=== PATIENT | female | born 2000 | race Caucasian/White ===

== ENCOUNTER → 2023-08-21 12:42 | Outpatient (CLI) | payer OTHER, SELFPAY ==
[2023-08-22 14:02] LABS: Strep Grp B PCR POS for Grp B Strep
== END ==
PROVIDERS: Visit Provider Obstetrics & Gynecology
DX: Z34.03 Encounter for supervision of normal first pregnancy, third trimester (principal); Z3A.37 37 weeks gestation of pregnancy
CPT/HCPCS: 87186; 87653

== ENCOUNTER 2023-09-05 14:59 | Outpatient (CLI) | payer OTHER, SELFPAY | END 2023-09-05 15:45 | disposition home or self-care (01) | LOC: OB 09-11 06:39 | PROVIDERS: Referring Provider Obstetrics & Gynecology; Visit Provider Obstetrics & Gynecology | DX: O47.1 False labor at or after 37 completed weeks of gestation (principal); Z3A.39 39 weeks gestation of pregnancy | CPT/HCPCS: 59025; G0378; G0379 ==

== ENCOUNTER 2023-09-05 22:28 | Observation (INO) | payer OTHER, SELFPAY | END 2023-09-05 23:35 | disposition home or self-care (01) | LOC: LABOR 22:31 | PROVIDERS: Admitting Provider Obstetrics & Gynecology; Referring Provider Obstetrics & Gynecology; Visit Provider Obstetrics & Gynecology | DX: O47.1 False labor at or after 37 completed weeks of gestation (principal); Z3A.39 39 weeks gestation of pregnancy | CPT/HCPCS: G0378; G0379 ==

== ENCOUNTER 2023-09-06 02:58 | Inpatient (IN) | payer OTHER, SELFPAY ==
[2023-09-06] MEDS: CLINDAMYCIN 900 MG/50 ML PIGGYBACK 50 MG IV (03:55)
[2023-09-06 03:57] LABS: Add Manual Diff / Slide Review NO; Basophils Absolute Auto 100 /uL (0-100); Basophils Percent Auto 0.6 % (0-2); Eosinophils Absolute Auto 0 /uL (0-450); Eosinophils Percent Auto 0.2 % (2-4); Hematocrit 39.6 % (36-46); Hemoglobin 13.6 g/dL (12.0-16.0); Lymphocytes Absolute Auto 2300 /uL (1100-4500); Lymphocytes Percent Auto 18.6 % (25-40); Mean Corpuscular HGB Conc 34.4 % (30-36); Mean Corpuscular Hemoglobin 30.5 PG (26-34); Mean Corpuscular Volume 88.7 fL (80-100); Monocytes Absolute Auto 900 /uL (0-900); Neutrophils Absolute Auto 9100 /uL (1500-7000); Neutrophils Percent Auto 73.6 % (50-75); Platelet Count 225 X10^3/uL (150-400); Red Blood Cell Count 4.47 X10^6/uL (4.0-5.2); Red Cell Distribution Width 15.3 % (11.6-14.8); White Blood Cell Count 12.4 X10^3/uL (4.5-11.0)
[2023-09-06] MEDS: LACTATED RINGERS 1,000 ML 100 ML IV ×2 (04:13→10:30)
--- NOTE | 2023-09-06 06:27 | PM.ANES.PR ---
Operative Date/Time/Diagnoses Date of procedure: 09/06/23 Time of procedure: 05:20 Pre-op diagnosis: Labor pain Post-op diagnosis: same Note Patient is a requesting labor epidural for labor pain
--- NOTE | 2023-09-06 06:28 | PM.AN.REGBLK ---
Regional Block Pre-procedure Procedure: Continuous Lumbar Epidural for L&D Attending OB provider: Melida Rutherford PMH/ROS narrative: Patient is a requesting labor epidural for labor pain Hx: No personal or family history of anesthesia problems. Exam narrative: Mallampati: 2, good neck ROM ASA Class: II Labs: Hct 39.6 % (36-46) 09/06/23 03:50 Plt Count 225 X10^3/uL (150-400) 09/06/23 03:50 Medications: Current Medications Generic Name Dose Route Start Last Admin Trade Name Freq PRN Reason Stop Dose Admin Carboprost Tromethamine 250 mcg 09/06/23 03:21 Carboprost 250 Mcg/Ml Ampul IM Q90M PRN Bleeding Oxytocin/Lactated Ringer's 30 unit in 500 mls @ 200 mls/hr 09/06/23 03:21 Oxytocin Premix IV CONT PRN Bleeding Protocol Tranexamic Acid 1,000 mg/ 100 mls @ 200 mls/hr 09/06/23 03:21 Sodium Chloride IV NOW PRN Bleeding Lactated Ringer's 1,000 mls @ 100 mls/hr 09/06/23 03:30 09/06/23 04:13 Lactated Ringers IV 100 mls/hr CONT FARRAH Administration Clindamycin Phosphate 900 mg in 50 mls @ 50 mls/hr 09/06/23 03:45 09/06/23 03:55 Cleocin IV 50 mls/hr Q8H FARRAH Administration Lidocaine HCl 20 ml 09/06/23 03:21 Lidocaine 1% 20 Ml INJ INTRA-OP PRN Post Delivery Methylergonovine Maleate 0.2 mg 09/06/23 03:21 Methylergonovine 0.2 Mg Tablet PO Q6HR PRN Heavy Bleeding Methylergonovine Maleate 0.2 mg 09/06/23 03:21 Methylergonovine 0.2 Mg/Ml Vial IM NOW PRN Bleeding Misoprostol 800 mcg 09/06/23 03:21 Misoprostol 200 Mcg Tablet MI NOW PRN Bleeding Misoprostol 400 mcg 09/06/23 03:21 Misoprostol 200 Mcg Tablet SL NOW PRN Bleeding Naloxone HCl 0.2 mg 09/06/23 03:21 Naloxone 0.4 Mg/Ml Vial IV Q2MIN PRN Opiate Reversal Oxytocin 10 unit 09/06/23 03:21 Oxytocin 10 Unit/Ml Vial IM NOW PRN Bleeding Allergies: Allergies Allergy/AdvReac Type Severity Reaction Status Date / Time Penicillins Allergy Mild Hives Verified 09/05/23 14:26 Procedure Insertion date: 09/06/23 Insertion time: 05:25 Prep/Local: 1% lidocaine (sterile drape, gloves, prep with Chloroprep) Interspace: L4-5 Patient position: sitting Needle: 18 gauge Hustead Loss of resistance with: saline JOANNA at (cm): 5 Catheter placed at SKIN (cm): 10 Catheter in SPACE (cm): 5 Sensory level: T10 Insertion: No CSF, No Blood, No Paresthesia with insertion, No Paresthesia with injection and No Test dose reaction Initial Medications TEST DOSE time: 06:04 TEST DOSE: 1.5% lidocaine with epinephrine 1:200k (mL): 5 BOLUS DOSE time: 06:15 BOLUS DOSE (mL): 5 BOLUS DOSE med: other (2%lidocaine) Infusion INFUSION: 0.125% bupivacaine and with fentanyl 2 mcg/mL Initial rate (mL/hr): 10 Subsequent interventions: Epidural Bolus of 100mcg fentanyl + 5 cc 0.25% Bupivacaine given prior to starting pump Post-procedure Anesthesia time START: 05:25 Anesthesia time END: 11:43 Post-procedure Anesthesia Assessment: Yes CV function: HR/BP stable, Yes Resp function: RR/sat/airway adequate, Yes Post-op hydration adequate, Yes Pain control adequate, Yes Nausea & vomiting absent, Yes Temperature > 36 C and Yes Mental status appropriate
[2023-09-06 06:58] VITALS: BP 105/55
--- NOTE | 2023-09-06 08:42 | P.HPOB_ITS ---
OB HPI Date/Time Date of admission: 09/06/23 Date Patient Seen: 09/06/23 History of Present Condition Chief complaint: OB CIELO Calculator 2 Estimated Delivery Date Method Current WG Current Estimate 09/10/23 Manual 39w 3d dates deter mined by MFJessa Other Estimates 09/05/23 Ultrasound #1 40w 1d 08/31/23 Conception 40w 6d Estimated Gestational Age (weeks): 39w3d : 1 Para: 0 Narrative: Pt is a 22yo at 39w3d here with regular painful contractions. Pt reports contractions started in the middle of the night, increasing in frequency and intensity. She denies any vaginal bleeding, LOF. She is feeling her baby move regularly. Her was uncomplicated. She transferred care from [place] at 35 wks. Her has tested positive for the ARVD. care: good care, initiated at week # (8) and pounds weight gain (43) Ultrasounds: normal 1st trimester US and normal mid trimester US Obstetrical complications: none Medical complications OB: none Preadmission Labs Last OB Lab Results: 2 Blood Type O Positive 09/06/23 04:07 Antibody Screen Negative 09/06/23 04:07 Hematocrit 39.6 % (36-46) 09/06/23 03:50 Hemoglobin 13.6 g/dL (12.0-16.0) 09/06/23 03:50 Group B Streptococcus (PCR) Pos for grp b strep H 08/21/23 12:4 2 Glucose Tolerance Testin hr (124) Genetic Screens: Cell-free DNA: Normal External Labs -: RPR/VDLR: negative Evaluation Evaluation Baseline heart rate: 130 Variability: Moderate (11-25) monitor accelerations: Present Monitor Decelerations: Absent Contraction Frequency (minutes): 2 Uterine Contraction Intensity: Strong/Firm Status: Category l Dilation (cm): 10 Effacement (%): 100 station: +2 Comments: After informed consent, AROM performed with meconium-stained fluid present [facility] Medical History (Updated 08/20/23 @ 18:14 by Estrella Traore) Chicken pox Irregular menstrual cycle Liver disease (~2014) Migraine with aura Depression (~2015) Anxiety (~2015) Surgical History (Updated 08/20/23 @ 18:14 by Estrella Traore) Anesthesia [place] teeth extracted History of appendectomy (~06/15/23) Family History (Updated 08/20/23 @ 18:15 by Estrella Traore) Father Viral hepatitis Mother Depression Anxiety Grandmother Diabetes mellitus Grandfather Lung cancer COPD (chronic obstructive pulmonary disease) Smoker Uncle Anxiety Depression Social History marital status: number of children: 0 household members: spouse lives independently: Yes caregiver/support person: No housing: other (TBD, [place] housing [place]) pets and animals: Yes (dogs, birds, ferrets. manages birds and ferretts) education level: vocational occupational status: previously employed current occupational exposures/hazards: No special dee needs: No travel history: recent (moved from [place]) seatbelt use: always firearms in home: No do you feel safe at home: Yes Smoking Status: Never smoker second hand exposure: No alcohol intake: former (rarely when not ) substance use type: does not use during the past year weight has: remained stable well-balanced diet: about half the time daily servings fruits/ve-4 caffeine: Yes (1 cup coffee in AM) Type(s) of exercise: walking, regular exercise and yoga Meds Home Medications and Allergies Home Medications Medication Instructions Recorded Confirmed Type ferrous sulfate 325 mg (65 mg 325 mg PO DAILY 07/26/23 09/05/23 History iron) tablet (Feosol) magnesium 250 mg tablet 250 mg PO DAILY 07/26/23 09/05/23 History omega-3 fatty acids 500 mg capsule 500 mg PO DAILY 07/26/23 09/05/23 History vitamin-ferrous sulfate tab PO 07/26/23 09/05/23 History 27 mg iron-folic acid 0.8 mg tablet Allergies Allergy/AdvReac Type Severity Reaction Status Date / Time Penicillins Allergy Mild Hives Verified 09/05/23 14:26 OB Exam Resp Effort & Inspection: normal respiratory effort Auscultation: clear to auscultation bilaterally Cardio Rate: regular rate Rhythm: regular rhythm Heart Sounds: S1 normal, S2 normal and no murmurs GI Inspection: non-distended Palpation: Yes soft and No tender Presentation: vertex Objective Labs 09/06/23 03:50 Labs: Laboratory Results - last 24 hr 09/06/23 09/06/23 03:50 04:07 WBC 12.4 H RBC 4.47 Hgb 13.6 Hct 39.6 MCV 88.7 MCH 30.5 MCHC 34.4 RDW 15.3 H Plt Count 225 Neut % (Auto) 73.6 Lymph % (Auto) 18.6 L [place] % (Auto) 7.0 Eos % (Auto) 0.2 L Baso % (Auto) 0.6 Neut # (Auto) 9100 H Lymph # (Auto) 2300 [place] # (Auto) 900 Eos # (Auto) 0 Baso # (Auto) 100 Blood Type O Positive Antibody Screen Negative Assessment and Plan Assessment and Plan Assessment and Plan narrative: 22yo at 39w3d here in active labor. GBS positive, Rh positive. AROM performed after adequate GBS prophylaxis when pt complete. - Expectant management, anticipate - FHT reassuring - GBS positive, continue prophylaxis with Clindamycin due to penicillin allergy - Epidural in place for pain control - Remainder of labs to be ordered
[2023-09-06] MEDS: OXYTOCIN PREMIX 30 UNIT/500 ML PLAST..BAG 200 UNIT IV (11:58)
[2023-09-06] MEDS: LIDOCAINE 1% 20 ML INJ (12:00)
--- NOTE | 2023-09-06 13:13 | P.PCNOB_ITS ---
Labor & Delivery Delivery date: 09/06/23 Intrapartal Events: None Cervical ripening method: none Induction method: none Delivery augmentation: rupture of membranes Delivery monitor: external FHT and external uterine Route of delivery: Episiotomy description: None L&D Laceration Description: Labial Delivery repair: chromic Quantitative Blood Loss: 300 Anesthesia Type: Epidural Narrative: PROCEDURE: at 39w3d presented in active labor and was admitted to Labor and Delivery. The patient progressed through the 1st stage without augmentation. She received GBS prophylaxis with Clindamycin. AROM occured at 8:23 with meconium-stained fluid. Pain was controlled with an epidural. The patient progressed through the 2nd stage over 2.5 hours and delivered a viable female with APGARs 7/9 at 11:53 via without complications. The cord was cut and clamped after it stopped pulsating. The placenta delivered with gentle cord traction, and appeared complete. The perineum and vagina were inspected with left labial laceration repaired with 2-O Chromic. Needle and sponge counts were correct.? The vagina was inspected and no items were left in situ. Hyun was doing well with Ember, her and her , Nathan,at [facility]. PREPROCEDURE DIAGNOSIS: Intrauterine at 39w3d GBS positive RH positive POSTPROCEDURE DIAGNOSIS: Intrauterine at 39w3d, delivered Same as preprocedure Baby 1: Infant gender: Female Presentation: vertex Position: Left Occiput Anterior Placenta delivery description: Spontaneous Cord Vessel Description: 3 Vessels score (1 min): 7 score (5 min): 9 weight: 7 lb 7.614 oz Plan for aftercare: Routine care
[2023-09-06] MEDS: ACETAMINOPHEN 325 MG TABLET 650 MG PO ×2 (15:11→20:49)
[2023-09-06] MEDS: IBUPROFEN 600 MG TABLET PO ×2 (15:12→20:52)
[2023-09-06 17:15] LABS: Rubella Antibody IgG 31.4 IU/mL (>15)
[2023-09-06 17:45] LABS: HIV 1 & 2 Ab/Ag 4th Gen Combo NEGATIVE (NEGATIVE)
[2023-09-06] MEDS: LANOLIN OINT 7 GM 1 APPLIC TOP (20:48)
[2023-09-07] MEDS: IBUPROFEN 600 MG TABLET PO ×3 (02:49→14:28)
[2023-09-07] MEDS: ACETAMINOPHEN 325 MG TABLET 650 MG PO ×3 (02:49→14:27)
[2023-09-07] MEDS: DOCUSATE 100 MG CAPSULE PO (08:21)
[2023-09-07] MEDS: PRENATAL VIT,CALC/IRON/FOLIC 1 TABLET 1 TAB PO (08:21)
[2023-09-07 09:08] LABS: Varicella IgG Antibody 653 index (Immune >165)
[2023-09-08 07:21] LABS: HBsAg Screen Negative (Negative); Hep A AB IgM Negative (Negative); Hepatitis A Ab, Total Negative (Negative); Hepatitis B Core Antibody IgM Negative (Negative); Hepatitis B Core Total Negative (Negative); Hepatitis B Surface AB, Qual Non Reactive (.); Hepatitis C Virus Ab Non Reactive (Non Reactive)
== END 2023-09-07 17:00 | disposition home or self-care (01) | DRG 807 ==
PROVIDERS: Family Medicine; Admitting Provider Obstetrics & Gynecology; Referring Provider Obstetrics & Gynecology; Visit Provider Obstetrics & Gynecology
DX: O99.824 Streptococcus B carrier state complicating childbirth (principal); Z37.0 Single live birth; Z3A.39 39 weeks gestation of pregnancy; O70.0 First degree perineal laceration during delivery
CPT/HCPCS: 36415; 59025; 59050; 59410; 80074; 85025; 86704; 86706; 86708; 86762; 86787; 86850; 86900; 86901; 87389; G0379; J2590

== ENCOUNTER → 2024-04-26 15:14 | Outpatient (CLI) | payer OTHER, SELFPAY ==
[2024-04-26 19:10] LABS: TSH w/ Reflex to FT4 1.67 uIU/mL (0.47-4.68)
[2024-04-26 21:12] LABS: Prolactin 41.9 ng/mL (3.0-18.6)
== END ==
PROVIDERS: Referring Provider Specialist; Visit Provider Specialist
DX: N92.6 Irregular menstruation, unspecified (principal)
CPT/HCPCS: 84146; 84443

== ENCOUNTER 2025-07-24 16:18 | Emergency (ER) | payer OTHER, SELFPAY ==
[2025-07-24 16:22] VITALS: BP 127/81; PULSE 84; RESP 16; TEMP 36.6; O2SAT 100; BMI 20.3
--- NOTE | 2025-07-24 16:25 | DI.RAD.S_ITS ---
PROCEDURE: XR FINGER RT MIN 2V INDICATIONS: slammed thumb in car door TECHNIQUE: AP hand, 2 views of the 1st finger(s) acquired. COMPARISON: None. FINDINGS: Bones: No fractures or dislocations. No suspicious bony lesions. Normal appearing sesamoid bones are seen. Soft tissues: No suspicious soft tissue calcifications. IMPRESSION: No displaced fractures are seen on these plain films. Dictated by: Yogi Guevara M.D. on 07/24/2025 at 15:51 Approved by: Yogi Guevara M.D. on 07/24/2025 at 15:51
--- NOTE | 2025-07-24 17:14 | ED.UPPEXIN ---
HPI - Extremity Injury (Upper) <Radha Perez PA-C - Last Filed: 07/24/25 19:31> General Chief Complaint: Extremity Injury, Upper Stated Complaint: Slammed Thumb in car door today Time Seen by Provider: 07/24/25 16:46 History of Present Illness HPI narrative: Hyun Block is a very pleasant 24-year-old female who presents to the emergency department for injury to right thumb that occurred earlier today. Patient accidentally slammed her right thumb in a car door, she has a small subungual hematoma/bruising at the base of the nail, and pain between the nail and the DIP joint. Finger is not deformed. No open wounds. No other injuries. Related Data Home Medications ?Medication ?Instructions ?Recorded ?Confirmed sertraline 25 mg tablet (Zoloft) 50 mg PO DAILY Anxiety and 04/26/24 06/08/25 depression Allergies Allergy/AdvReac Type Severity Reaction Status Date / Time Penicillins Allergy Mild Hives Verified 04/26/24 14:51 amoxicillin Allergy Verified 06/08/25 13:15 Review of Systems <Radha Perez PA-C - Last Filed: 07/24/25 19:31> Review of Systems ROS Unobtainable: All systems reviewed & are unremarkable except as noted in HPI and below Patient History <Radha Perez PA-C - Last Filed: 07/24/25 19:31> Medical History Vaginal delivery (~08/2023) Chicken pox Irregular menstrual cycle Liver disease (~2014) Migraine with aura Depression (~2015) Anxiety (~2015) Surgical History Anesthesia [place] teeth extracted History of appendectomy (~06/15/23) Family History Father Viral hepatitis Mother Depression Anxiety Grandmother Diabetes mellitus Grandfather Lung cancer COPD (chronic obstructive pulmonary disease) Smoker Uncle Anxiety Depression Social History marital status: number of children: 0 household members: spouse lives independently: Yes caregiver/support person: No housing: other (TBD, waiting on base housing issues) pets and animals: Yes (dogs, birds, ferrets. manages birds and ferretts) education level: vocational occupational status: previously employed current occupational exposures/hazards: No special dee needs: No travel history: recent (moved from [place]) seatbelt use: always firearms in home: No do you feel safe at home: Yes second hand exposure: No alcohol intake: former (rarely when not ) substance use type: does not use during the past year weight has: remained stable well-balanced diet: about half the time daily servings fruits/ve-4 caffeine: Yes (1 cup coffee in AM) Type(s) of exercise: walking, regular exercise and yoga Exam <Radha Perez PA-C - Last Filed: 07/24/25 19:31> Narrative Exam Narrative: GENERAL: 24 year old patient appears stated age. Well-developed patient, in no acute distress. HEAD: Atraumatic. Normocephalic. NECK: Trachea midline. Cervical ROM intact. CARDIOVASCULAR: Regular rate RESPIRATORY: ?Nonlabored respirations. ?Speaking in clear, full sentences. EXTREMITIES: Right thumb with small subungual hematoma at proximal nail base, less than 25% of nail. Tenderness to palpation of the distal phalanx. No deformities. Patient is still able to flex and extend at the DIP and MCP. Brisk cap refill on the distal thumb tip and sensation intact to light touch. NEURO: AOx3. ?Clear speech. ?Moves all 4 extremities appropriately. SKIN: No rash or erythema of visible areas Initial Vital Signs Initial Vital Signs: Vital Signs Temperature 97.9 F 07/24/25 16:22 Pulse Rate 84 07/24/25 16:22 Respiratory Rate 16 07/24/25 16:22 Blood Pressure 127/81 07/24/25 16:22 Pulse Oximetry 100 07/24/25 16:22 Oxygen Delivery Method Room Air 07/24/25 16:22 <Gualberto Xiong DO - Last Filed: 07/25/25 22:59> Initial Vital Signs Initial Vital Signs: Vital Signs Temperature 97.9 F 07/24/25 16:22 Pulse Rate 84 07/24/25 16:22 Respiratory Rate 16 07/24/25 16:22 Blood Pressure 127/81 07/24/25 16:22 Pulse Oximetry 100 07/24/25 16:22 Oxygen Delivery Method Room Air 07/24/25 16:22 Course <Radha Perez PA-C - Last Filed: 07/24/25 19:31> Orders Ordered: ED Orders 07/24/25 16:25 XR finger RT min 2V Stat Vital Signs Vital signs: Vital Signs - 8 hr 07/24/25 16:22 07/24/25 18:05 Temperature 97.9 F 98.3 F Pulse Rate 84 67 Respiratory Rate 16 16 Blood Pressure 127/81 132/76 Pulse Oximetry 100 99 Oxygen Delivery Method Room Air Room Air <Gualberto ArreguinFredrickIlsa Xiong DO - Last Filed: 07/25/25 22:59> Orders Ordered: ED Orders 07/24/25 16:25 XR finger RT min 2V Stat Vital Signs Vital signs: Vital Signs - 8 hr 07/24/25 16:22 07/24/25 18:05 Temperature 97.9 F 98.3 F Pulse Rate 84 67 Respiratory Rate 16 16 Blood Pressure 127/81 132/76 Pulse Oximetry 100 99 Oxygen Delivery Method Room Air Room Air MDM - Extremity Injury (Upper) <GAYLA Lazaro Last Filed: 07/24/25 19:31> Medical Records Attestation: I reviewed the patient's medical records. Imaging Data Right Finger X-Ray: My Impression: On my independent interpretation x-ray there is no fracture of the right distal phalanx Radiologist's Impression: PROCEDURE: XR FINGER RT MIN 2V INDICATIONS: slammed thumb in car door TECHNIQUE: AP hand, 2 views of the 1st finger(s) acquired. COMPARISON: None. FINDINGS: Bones: No fractures or dislocations. No suspicious bony lesions. Normal appearing sesamoid bones are seen. Soft tissues: No suspicious soft tissue calcifications. IMPRESSION: No displaced fractures are seen on these plain films. Dictated by: Yogi Guevara M.D. on 07/24/2025 at 15:51 Approved by: Yogi Guevara M.D. on 07/24/2025 at 15:51 [facility] Narrative Medical decision making narrative: 24-year-old female who presents to the emergency department for injury to right thumb that occurred earlier today. Differential diagnosis includes but is not limited to subungual hematoma, finger contusion, fracture, dislocation, sprain, strain, etc. On exam the patient is in no acute distress, nontoxic appearing, vital signs appropriate. Her right thumb has a very small subungual hematoma, tenderness of the distal phalanx, no deformities. She is neurovascularly intact. X-ray reveals no displaced fracture or dislocation. Did offer subungual hematoma drainage however it is quite small and she defers. Right thumb was placed in an aluminum splint for comfort. Discussed rice therapy, ibuprofen, acetaminophen, PCP follow up, ER return precautions. Patient verbalized understanding of all information agreeable with the plan. She is ambulatory for discharge home. <Gualberto Xiong, - Last Filed: 07/25/25 22:59> [facility] Narrative Medical decision making narrative: 24-year-old female who presents to the emergency department for injury to right thumb that occurred earlier today. Differential diagnosis includes but is not limited to subungual hematoma, finger contusion, fracture, dislocation, sprain, strain, etc. On exam the patient is in no acute distress, nontoxic appearing, vital signs appropriate. Her right thumb has a very small subungual hematoma, tenderness of the distal phalanx, no deformities. She is neurovascularly intact. X-ray reveals no displaced fracture or dislocation. Did offer subungual hematoma drainage however it is quite small and she defers. Right thumb was placed in an aluminum splint for comfort. Discussed rice therapy, ibuprofen, acetaminophen, PCP follow up, ER return precautions. Patient verbalized understanding of all information agreeable with the plan. She is ambulatory for discharge home. Co-sign statement: I was available for consultation during this patient's emergency department visit. This chart is being signed by myself for administrative purposes only. I do not have direct contact with this patient during this visit. They were seen independently by the APC. Discharge Plan Departure Patient Disposition: Home Clinical Impression: Subungual hematoma Crush injury to thumb Qualifiers: Encounter type: initial encounter Laterality: right Qualified Code(s): S67.01XA - Crushing injury of right thumb, initial encounter Instructions: DI for Crush Injury, DI for Subungual Hematoma Activity Restrictions/Additional Instructions: Dear Ms. Block, Thank you for coming to the emergency department. Today you were evaluated for crush injury to the thumb. You have a small amount of bleeding below the nail which is called a subungual hematoma. Your x-ray luckily did not reveal any broken bones. I would like you to use the provided splint to help with pain and swelling. As we discussed, it is possible that you may have damage to the nail growth. Please use RICE therapy for your pain in addition to ibuprofen/acetaminophen. Rest the painful area. Ice the area of pain/swelling for at least 15 minutes, 4x a day. Compress the area of swelling using a brace, wrap, or splint if applied. Elevate the painful or swollen extremity by supporting it above the level of the heart with pillows when sitting or laying. Please take Ibuprofen (Motrin/Advil) or Acetaminophen (Tylenol) for pain. These are available over the counter. You may take Ibuprofen 600 mg every 8 hours with food for pain. You may also take Acetaminophen 650 mg every 4-6 hours for pain. Do not exceed 3000 mg of Tylenol a day as this can cause liver damage. Do not drink alcohol with either of these medications. Please follow up with your primary care doctor within the next 2-3 days for ER follow-up. (If you do not have a PCP you can call [phone]. ?to schedule an appointment with an [facility] Primary Care Provider) IF YOU DEVELOP ANY NEW OR WORSENING SYMPTOMS, RETURN TO THE ER! Please read the attached instructions, they highlight more specific treatments and interventions for you at home. Thank you for letting me participate in your care, Radha Perez PA-C Prescriptions: No Action sertraline [Zoloft] 25 mg tablet 50 mg PO DAILY Referrals: [facility] [Primary Care Provider, Family Practice] Stand Alone Forms: Patient Portal/API
[2025-07-24 18:05] VITALS: BP 132/76; PULSE 67; RESP 16; TEMP 36.8; O2SAT 99
== END 2025-07-24 18:10 | disposition home or self-care (01) ==
PROVIDERS: Emergency Provider Physician Assistant
DX: S67.01XA Crushing injury of right thumb, initial encounter (principal); S60.011A Contusion of right thumb without damage to nail, initial encounter; W23.0XXA Caught, crushed, jammed, or pinched between moving objects, initial encounter
CPT/HCPCS: 73140; 99281; 99283